=== PATIENT | female | born 1945 | race Two or more races ===

== ENCOUNTER 2018-02-25 07:22 | Day surgery (SDC) | payer OTHER ==
[~2018-02-25 07:22] MED LIST: Intestinex CAP PO; OXYC1TAB9 PO; RECTICARE30 GM TOP; URIN D.S. TABL1 EACH PO
== END 2018-02-25 11:55 | disposition home or self-care (01) ==
LOC: AMB-ENDOS 07:22
DX: D12.4 Benign neoplasm of descending colon (principal)

== ENCOUNTER 2019-06-02 07:50 | Day surgery (SDC) | payer OTHER | END 2019-06-02 12:05 | disposition home or self-care (01) | LOC: AMB-ENDOS 07:50 | DX: D12.5 Benign neoplasm of sigmoid colon (principal); K57.30 Diverticulosis of large intestine without perforation or abscess without bleeding ==